=== PATIENT | female | born 2000 | race Hispanic/Latino ===

== ENCOUNTER 2020-10-17 08:20 | Outpatient (CLI) | payer OTHER, SELFPAY ==
[~2020-10-17] VITALS: Ht 160 cm; Wt 77.4 kg
[2020-10-17] MEDS ORDERED: PRENTAB9 PO (08:33)
[2020-10-17 08:38] VITALS: BP 127/75
--- NOTE | 2020-10-17 10:26 | IPNPDOC ---
Obstetrical Progress Note Date of Service Oct 17, 2020 Subjective Pt presents with c/o cramping Objective Vital Signs Date Time Temp Pulse Resp B/P (MAP) Pulse Ox O2 Delivery O2 Flow Rate FiO2 10/17/20 08:38 97.9 72 18 127/75 (92) Assessment Heart Rate (FHR): 130 Variability: Moderate Accelerations: Positive Decelerations: None Heart Rate Tracing: Category I Tocometer Contractions: Yes Frequency: irregular Sterile Vaginal Examination Dilation: 1cm Effacement (%): 50% Station: -3 Cervical Consistency: Medium Cervical Position: Posterior Postion/Presentation: Cephalic presentation Assessment and Plan Age: 20 : 2 Term: 1 Pre-term: 0 Abortions: 0 Livin EGA at Admission: 39 Status: Reassuring Group B Streptococcus: Negative Anticipate: Vaginal Delivery Additional Comments RNST with irregular contractions Cephalic presentation by Antolin SAMANTHA 14.3 IOL for A1GDM scheduled for [id number] @40+0 Discharged to home with labor precautions, expressed understanding of reasons to return for care, IOL scheduled, pt to keep scheduled clinic appointment and COVID testing as ordered CHRISTIANA CHAMORRO CNM Oct 17, 2020 10:26
[2020-10-18] MEDS ORDERED: VIST25CA PO (18:25)
[2020-10-18] MEDS ORDERED: REGL10TA6 PO (18:25)
== END 2020-10-17 10:31 | disposition home or self-care (01) ==
LOC: M LDO 08:20
PROVIDERS: ATTEND Registered Nurse
DX: O26.893 Other specified pregnancy related conditions, third trimester (principal); R10.9 Unspecified abdominal pain; Z3A.40 40 weeks gestation of pregnancy
CPT/HCPCS: 59025; G0378; G0463

== ENCOUNTER 2020-10-18 08:02 | Outpatient (CLI) | payer OTHER ==
[~2020-10-18] VITALS: Ht 160 cm; Wt 77.6 kg
[~2020-10-18 08:02] MED LIST: PRENTAB9 PO
[2020-10-18 08:16] VITALS: BP 120/71
[2020-10-18 10:13] VITALS: BP 119/73
--- NOTE | 2020-10-18 12:19 | IPNPDOC ---
Obstetrical Progress Note Date of Service Oct 18, 2020 Subjective 20yo @39+1, complicated by A1GDM presents to triage for c/o cramping. States cramping, spotting, and difficulty sleeping. Denies bleeding, LOF, states reassuring movement. Objective Vital Signs Date Time Temp Pulse Resp B/P (MAP) Pulse Ox O2 Delivery O2 Flow Rate FiO2 10/18/20 10:13 67 16 119/73 (88) 10/18/20 08:16 98.3 Assessment Heart Rate (FHR): 135 Variability: Moderate Accelerations: Positive Decelerations: None Tocometer Contractions: Yes Frequency: irregular, every 3-7 min. Duration: greater than 60 seconds Strength: palpated as mild, resting tone palp/soft Sterile Vaginal Examination Dilation: 3 cm Effacement (%): 70% Station: -3 Cervical Consistency: Medium Cervical Position: Posterior Postion/Presentation: Cephalic presentation Assessment and Plan Age: 20 : 2 Term: 1 Pre-term: 0 Abortions: 0 Livin EGA at Admission: 39 (+1) Status: Reassuring Additional Comments Pt advised of options for comfort, need for hydration, nutrition, and rest. Pt expressed a desire for rest and medication at home. Discharged to home with labor precautions, expressed understanding of reasons to return for care, hydration, nutrition, safe use of medications. 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 Spouse provided with quarters slip for 24hrs to to provide care and transportation for the patient. CHRISTIANA CHAMORRO CNM Oct 18, 2020 12:19
[2020-10-18] MEDS ORDERED: VIST25CA PO (18:25)
[2020-10-18] MEDS ORDERED: REGL10TA6 PO (18:25)
== END 2020-10-18 11:40 | disposition home or self-care (01) ==
LOC: M LDO 08:02
PROVIDERS: ATTEND Registered Nurse
DX: O26.853 Spotting complicating pregnancy, third trimester (principal); Z3A.39 39 weeks gestation of pregnancy
CPT/HCPCS: 59025; G0378; G0463

== ENCOUNTER 2020-10-18 17:54 | Inpatient (IN) | payer OTHER ==
[2020-10-18] VITALS (24 sets, daily range): BP systolic 104–156; BP diastolic 58–89
[~2020-10-18] VITALS: Ht 165.1 cm; Wt 77.2 kg
[2020-10-18] MEDS ORDERED: REGL10TA6 PO (18:25)
[2020-10-18] MEDS ORDERED: VIST25CA PO (18:25)
[2020-10-18] MEDS ORDERED: LR 1,000 ML IV SCH (19:11)
[2020-10-18 19:28] LABS: HEMATOCRIT 39.7 % (36.0-47.0); MEAN CORPUSCULAR HEMOGLOBIN 28.6 pg (27.0-33.0); MEAN CORPUSCULAR HGB CONC 32.7 g/dl (32.0-36.5); MEAN CORPUSCULAR VOLUME 87.3 fl (80.0-96.0); PLATELET COUNT, AUTOMATED 278 10^3/uL (150-450); RED BLOOD COUNT 4.55 10^6/uL (4.00-5.40); WHITE BLOOD COUNT 15.3 10^3/uL (4.0-10.0)
--- NOTE | 2020-10-18 19:30 | HPEPDOC ---
Obstetrical History & Physical General Date of Admission Oct 18, 2020 at 19:18 History of Present Illness 20 yo at 39+2 weeks gestation by LMP of [id number] presents to L&D with regular, painful contractions that have been worsening throughout the day. She denies vaginal bleeding or leakage of fluid. She endorses movement. Chief Complaint: Contractions, term Information Provided By: Patient Age: 20 : 2 Term: 1 Pre-term: 0 Abortions: 0 Livin Care Care: Good Care Dating Final EDC: Oct 23, 2020 Final EDC for Daily Update: Oct 23, 2020 Final EDC by: LMP LMP: Jan 17, 2020 Antepartum Course Diagnos(e)s Gestational diabetes --> diet controlled RH negative --> has received rhogam appropriately Past Medical History Past Obstetrical History : Past Obstetrical History: Multigravida (G1 - in 2018 at 39 weeks after IOL for GDM, pelvis proven to 6lbs 5oz, G2 - current ) PAGINATOR History: No pertinent history Past Medical History Medical History Denies Surgical History: Denies/None Family History Significant Family History: No pertinent family hx Social History Marital Status: Family situation: Spouse/partner home Psychosocial History: No pertinent psych hx * Smoker: non-smoker Alcohol: Denies Drugs: denies Imunizations Tdap status: current Influenza Status: needs Allergies Coded Allergies: No Known Allergies (Unverified , 10/17/20) Medications Scheduled Metoclopramide HCl (Reglan) 10 Mg Tablet, 1 TAB PO QID before food and bedtime No.137/Iron/Folic Acd ( Vitamin Tablet) 1 Each Tablet, 1 TAB PO DAILY Scheduled PRN Hydroxyzine Pamoate (Vistaril) 25 Mg Capsule, 25 MG PO Q4HP PRN for SLEEP Physical Examination Physical Examination GENERAL: Alert and oriented times three. Painfully kevin and tearful. ABDOMEN: Gravid and non-tender to touch. FETUS: Is vertex (VTX) by sterile vaginal examination (SVE) EXTREMITIES: No edema. Vital Signs/I&O Vital Signs Date Time Temp Pulse Resp B/P (MAP) Pulse Ox O2 Delivery O2 Flow Rate FiO2 10/18/20 18:10 98.2 98 16 128/85 (99) Laboratory Data Urine Culture: No Growth, Escherichia (E.) Coli (s/p treatment) Pertinent Laboratoy Data Blood Type: O- RBC Antibody Screen: Negative HIV: Negative Hepatitis B: Negative Hepatitis C: Unknown Rapid Plasma Reagin: Nonreactive Rubella: Immune Varicella: Immune Chlamydia/Gonorrhea: Negative Group B Streptococcus: Negative Quad Screen Test: Unknown Cystic Fibrosis: Negative Glucose Tolerance Test: 147 Anatomy Ultrasound Ultrasound Date: Jun 06, 2020 Placenta Location: Anterior Normal Anatomy: Yes Placenta Previa: No Vaginal Examination Dilation: 5 cm Effacement: 90% Station: -1 Cervical Consistency: Soft Cervical Position: Middle Presentation: Cephalic presentation Position: Vertex (occiput) Assessment Heart Rate (FHR): 140 Variability: Moderate Accelerations: Positive Decelerations: None Tocometer Contractions: Yes Frequency: regular Strength: palpated as strong Assessment/Plan Assessment 20 yo at 39+2 weeks gestation presents to L&D in active labor. Plan Admit to L&D for expectant management of labor. Will augment as clinically indicated. Apply IV fluids. Clear liquid diet. GBS negative. Patient may have epidural if desired. Anticipate . DO KALINA Calderon CHRISTOPHER J. DO Oct 18, 2020 19:30
[2020-10-18] MEDS ORDERED: FENTANYL 2MCG/ML ROPIVACAINE 0.2% IN 0.9% NACL 100ML IVBAG As Ordered ONE (19:45)
[2020-10-18] MEDS ORDERED: ePHEDrine SULFATE 25 MG/5 ML(5MG/ML) SYRINGE IV PRN (20:30)
[2020-10-18] MEDS ORDERED: ONDANSETRON 4MG/2ML VIAL IV PRN (20:30)
[2020-10-18] MEDS ORDERED: EPIDURAL/PCA KEYS XX PRN (20:30)
[2020-10-18] MEDS ORDERED: FENTANYL/ROPIVACAINE/NACL BAG 100 ML EPIDURAL SCH (20:30)
[2020-10-18] MEDS ORDERED: REFRIGERATOR IV KEYS XX PRN (20:30)
[2020-10-18] MEDS ORDERED: NALOXONE INJ 0.4MG/1ML VIAL (J2310 PER 1MG) IV PRN (20:30)
[2020-10-18] MEDS ORDERED: EPIDURAL COMMENT XX SCH (20:30)
[2020-10-18] MEDS ORDERED: LACTATED RINGER'S 1000 ML IV PRN (20:30)
[2020-10-18] MEDS ORDERED: diphenhydrAMINE 50MG/ML VIAL (J1200) IV PRN (20:30)
[2020-10-18] MEDS ORDERED: OXYTOCIN 30 UNITS IN 0.9% NaCl 500ML IV BAG (J2590) As Ordered ONE (22:23)
[2020-10-18] MEDS ORDERED: OXYTOCIN DRIP 30 UNITS in IV 1 EA IV SCH (23:28)
[2020-10-18] MEDS ORDERED: PROMETHAZINE 25 MG TAB PO PRN (23:30)
[2020-10-18] MEDS ORDERED: ACETAMINOPHEN TAB 650MG DOSE (2X325MG) PO PRN (23:30)
[2020-10-18] MEDS ORDERED: RHOGAM 300 MCG (1500 IU) INJ (J2790) IM SCH (23:30)
[2020-10-18] MEDS ORDERED: BENZOCAINE 20% HEMORRHOIDAL OINTMENT 28GM TUBE TOP PRN (23:30)
[2020-10-18] MEDS ORDERED: IBUPROFEN 600MG TAB PO PRN (23:30)
[2020-10-18] MEDS ORDERED: MEASLES,MUMPS,RUBELLA VACCINE INJ (MMR-II) (90707) SC SCH (23:30)
[2020-10-18] MEDS ORDERED: DOCUSATE SODIUM 100MG CAPSULE PO PRN (23:30)
--- NOTE | 2020-10-18 23:36 | DNPDOC ---
[facility] Delivery Note Delivery Note DATE OF DELIVERY: 18Oct2020 at ~2310 PREDELIVERY DIAGNOSIS: 39+2 weeks gestation and active labor POST DELIVERY DIAGNOSIS: Delivered. PROCEDURE: Spontaneous vaginal delivery MEDICAL OFFICE PROFESSIONAL INSTRUCTOR: Dr. Ayala ANESTHESIA: Neuraxial (Epidural). ESTIMATED BLOOD LOSS: 200 mL. FINDINGS: 7 pound 12 ounce male , Score 9/9 DELIVERY SUMMARY: Sugar progressed quickly in labor after her epidural. Her membranes ruptured spontaneously (clear fluid) and she felt a strong urge to push. The bed was broken down and she was prepped for delivery. With excellent effort over about 1 hour of pushing, her baby delivered. Presentation was CRISTAL with restitution to LOT. The right anterior shoulder delivered with gentle guidance followed easily by the remainder of the body. The was dried and stimulated on the field and a bulb suction was used. The infant was placed on the maternal abdomen and cried vigorously. The three vessel umbilical cord was then clamped and cut by the FOB after appropriate time delay and under my direction. Third stage was completed with gentle traction on on the cord and it was productive of an intact placenta. The uterus was firmed with massage and pitocin was administered IV bolus. Inspection of the cervix, vagina, labia, and perineum revealed a midline 2nd degree perineal laceration. This laceration was repaired with 3-0 vicryl suture in the usual fashion. There was excellent cosmesis and hemostasis after the repair. The fundus was palpated again and was firm. Sponge, instrument, and needle counts were correct X2. Mother and infant stable when I left the room. DO KALINA Calderon CHRISTOPHER J. DO Oct 18, 2020 23:36
[2020-10-19 00:57] VITALS: BP 144/79
[2020-10-19] MEDS: ACETAMINOPHEN 500 MG TAB PO PRN ×2 (04:31→17:15)
[2020-10-19 06:00] VITALS: BP 106/56
--- NOTE | 2020-10-19 06:21 | IPNPDOC ---
Progress Note Date of Service: Oct 19, 2020 Progress Note Sugar is a 20 yo G2 now P2 who underwent an uncomplicated yesterday evening around ~2300 after being admitted for active labor. No acute acute events overnight. She reports feeling well this morning, just tired. Lochia is minimal. She is . She is ambulating, voiding, tolerating a regular diet. She denies any significant pain. Vitals - VSS, afebrile, normotensive, non tachycardic General - Laying in bed, NAD, pleasant and conversant Abdomen - Fundus firm at U-2. No fundal tenderness Extremities - No edema Sugar is doing well and is thus far making an appropriate recovery. Rhogam due today. Will continue routine care. Anticipate discharge home tomorrow. All patient questions answered. Raymundo Ayala DO VS, I&O, 24H, Fishbone Vital Signs/I&O Vital Signs Date Time Temp Pulse Resp B/P (MAP) Pulse Ox O2 Delivery O2 Flow Rate FiO2 10/19/20 06:00 98.3 75 16 106/56 (73) 98 Room Air I&O- Last 24 Hours up to 6 AM 10/19/20 06:00 Intake Total 2000 ml Output Total 450 ml Balance 1550 ml Laboratory Data 24H LABS Laboratory Tests 2 10/18/20 19:18: Nucleated Red Blood Cells % (auto) 0.0, Syphilis Serology NONREACTIVE, Hepatitis B Surface Antigen NEGATIVEL 10/18/20 21:56: Serology Scanned Report Hepatitis B Testing CBC/BMP Laboratory Tests 10/18/20 19:18 RAYMUNDO AYALA DO Oct 19, 2020 06:21
[2020-10-19] MEDS: IBUPROFEN 800 MG TAB PO PRN (09:23)
[2020-10-19] MEDS: PRENATAL VITAMINS CHEWABLE TABLET PO SCH (09:23)
--- NOTE | 2020-10-19 17:40 | IPN ---
PROGRESS NOTE DATE: 10/19/2020 This patient's requested circumcision of their male infant. After discussing risks, benefits of circumcision, the medical and nonmedical indications, the penile block and aftercare, expressed understanding of penile block, aftercare and bleeding, signed a consent form. All questions were answered; 20 minute discussion. We wait for clearance by the card hanger.
[2020-10-19 18:00] VITALS: BP 117/61
[2020-10-20] MEDS: IBUPROFEN 800 MG TAB PO PRN (00:13)
[2020-10-20] MEDS: ACETAMINOPHEN 500 MG TAB PO PRN (02:05)
[2020-10-20 05:35] VITALS: BP 96/51
[2020-10-20] MEDS ORDERED: DOK1CAP7 PO (06:49)
[2020-10-20] MEDS ORDERED: IBUP-1022 PO (06:49)
[2020-10-20] MEDS: PRENATAL VITAMINS CHEWABLE TABLET PO SCH (07:46)
--- NOTE | 2020-10-20 07:46 | DSES ---
DISCHARGE SUMMARY DATE OF ADMISSION: 10/18/2020 DATE OF DISCHARGE: 10/20/2020 BRIEF HISTORY: This lady is a 1, now para 2, admitted with contractions at 39 and 2 weeks of gestation. Had an epidural in place. Spontaneous vaginal delivery, male infant, 7 pounds, 12 ounces. scores of 9 and 9 at one and five minutes respectively. She is an AGDM1 on diet. Second degree tear was repaired in the usual fashion. On her second day we discussed phlebitis, cystitis, mastitis, endometritis, cellulitis, diet, exercise, pain management, perineal care. On discharge, her hemoglobin was 13.0, hematocrit 39.7 and platelets were 278. PHYSICAL EXAMINATION: VITAL SIGNS: Blood pressure 96/51, respirations 16, pulse 72, temperature 97.1. The rest of the examination is unremarkable. Normocephalic, atraumatic. Neck full range of motion, Pupils are equal and reactive to light and accommodation. Distal pulses symmetric. No evidence of deep venous thrombosis, pulmonary embolism or superficial phlebitis. CHEST: Clear bilaterally to bases. No wheezes or rhonchi. No costovertebral angle (CVA) tenderness. ABDOMEN: Soft. Uterus 2 below. Lochia is moderate. Four quadrant bowel sounds are noted. Perineum is healing. No rashes, lesions or pruritus. No arthralgia or myalgia. No complaint of joint pain. No complaint of cough, wheeze, shortness of breath or dyspnea on exertion. No vomiting, diarrhea or constipation. No urgency or frequency. PLAN OF DISCHARGE: She is to bean picker her medications at [place]. She has a six week checkup at [facility]. She will be counseled as to where to take baby for first post infant checkup. All questions are answered, 20 minute discussion. Patient was discharged improved.
[2020-10-20] MEDS ORDERED: INFLUENZA QUADRIVALENT PF VACCINE 0.5ML SYRINGE IM ONE (09:00)
== END 2020-10-20 11:45 | disposition home or self-care (01) | DRG 807 ==
LOC: M LDO 17:54 → M LDI 19:18 → M OBS 10-19 00:57
PROVIDERS: ADMIT Obstetrics & Gynecology; ATTEND Obstetrics & Gynecology
PROC: 10E0XZZ Delivery of Products of Conception, External Approach (ICD-10-PCS; principal; 2020-10-18)
PROC: 0KQM0ZZ Repair Perineum Muscle, Open Approach (ICD-10-PCS; 2020-10-18)
DX: O24.420 Gestational diabetes mellitus in childbirth, diet controlled (principal); Z37.0 Single live birth; Z3A.39 39 weeks gestation of pregnancy; O70.1 Second degree perineal laceration during delivery

== ENCOUNTER → 2021-10-25 | Outpatient (CLI) | payer OTHER ==
[~2021-10-25] MED LIST changes: +DOK1CAP4 PO; +IBUP-1022 PO; +REGL10TA6 PO; +VIST25CA PO
[2021-10-25 16:27] LABS: BASO % 0.4 % (0.0-1.0); EOS % 0.4 % (0.0-3.0); HEMATOCRIT 33.8 % (36.0-47.0); HEMOGLOBIN 11.6 g/dl (12.0-15.5); LYMPH # 1.3 10^3/uL (1.5-5.0); LYMPH % 18.3 % (24.0-44.0); MEAN CORPUSCULAR HEMOGLOBIN 30.9 pg (27.0-33.0); MEAN CORPUSCULAR HGB CONC 34.3 g/dl (32.0-36.5); MEAN CORPUSCULAR VOLUME 89.9 fl (80.0-96.0); MONO # 0.5 10^3/uL (0.0-0.8); MONO % 6.7 % (2.0-8.0); NEUTROPHILS # 5.4 10^3/uL (1.5-8.5); NEUTROPHILS % 73.4 % (36.0-66.0); PLATELET COUNT, AUTOMATED 229 10^3/uL (150-450); RED BLOOD COUNT 3.76 10^6/uL (4.00-5.40); WHITE BLOOD COUNT 7.3 10^3/uL (4.0-10.0)
[2021-10-25 16:37] LABS: APPEARANCE, URINE HAZY (CLEAR); BACTERIA, URINE AUTO 1+ (NEGATIVE); BILIRUBIN, URINE AUTO NEGATIVE (NEGATIVE); BLOOD, URINE BLOOD NEGATIVE (NEGATIVE); COLOR, URINE YELLOW (YELLOW); GLUCOSE, URINE (UA) AUTO NEGATIVE (NEGATIVE); KETONE, URINE AUTO TRACE mg/dL (NEGATIVE); LEUKOCYTE ESTERASE, URINE AUTO 1+ (NEGATIVE); MUCUS, URINE SMALL (NEGATIVE); NITRITE, URINE AUTO POSITIVE (NEGATIVE); PROTEIN, URINE AUTO NEGATIVE (NEGATIVE); RBC, URINE AUTO 0 /HPF (0-3); SPECIFIC GRAVITY URINE AUTO 1.018 (1.002-1.035); SQUAMOUS EPITHELIAL CELL UR AU 1 /HPF (0-6); WBC, URINE AUTO 4 /HPF (0-3)
[2021-10-25 16:55] LABS: ALT/SGPT 12 U/L (12-78); BILIRUBIN,TOTAL 0.4 MG/DL (0.2-1.0); BLOOD UREA NITROGEN 9 MG/DL (7-18); CALCIUM LEVEL 8.6 MG/DL (8.5-10.1); CARBON DIOXIDE LEVEL 24 MEQ/L (21-32); CHLORIDE LEVEL 109 MEQ/L (98-107); CREATININE FOR GFR 0.44 MG/DL (0.55-1.30); GLOMERULAR FILTRATION RATE > 60.0 (>60); GLUCOSE, FASTING 72 MG/DL (70-100); POTASSIUM SERUM 3.9 MEQ/L (3.5-5.1); SODIUM LEVEL 140 MEQ/L (136-145); TOTAL PROTEIN 6.4 GM/DL (6.4-8.2)
[2021-10-25 17:15] LABS: HEPATITIS B SURFACE ANTIGEN NEGATIVE (NEGATIVE)
[2021-10-25 17:43] LABS: HIV 1&2 SCREEN CENTAUR NEGATIVE (NEGATIVE)
== END ==
LOC: M LAB 14:39
PROVIDERS: ATTEND Obstetrics & Gynecology
DX: Z34.92 Encounter for supervision of normal pregnancy, unspecified, second trimester (principal)

== ENCOUNTER 2022-01-14 11:04 | Outpatient (CLI) | payer OTHER ==
[~2022-01-14] VITALS: Ht 160 cm; Wt 65.6 kg
[2022-01-14] MEDS ORDERED: STUACAP PO (11:20)
[2022-01-14 11:25] VITALS: BP 120/61
[2022-01-14 12:07] LABS: APPEARANCE, URINE CLEAR (CLEAR); BACTERIA, URINE AUTO 2+ (NEGATIVE); BILIRUBIN, URINE AUTO NEGATIVE (NEGATIVE); BLOOD, URINE BLOOD NEGATIVE (NEGATIVE); COLOR, URINE YELLOW (YELLOW); GLUCOSE, URINE (UA) AUTO NEGATIVE (NEGATIVE); KETONE, URINE AUTO NEGATIVE (NEGATIVE); LEUKOCYTE ESTERASE, URINE AUTO 1+ (NEGATIVE); NITRITE, URINE AUTO POSITIVE (NEGATIVE); PROTEIN, URINE AUTO NEGATIVE (NEGATIVE); RBC, URINE AUTO 1 /HPF (0-3); SPECIFIC GRAVITY URINE AUTO 1.009 (1.002-1.035); SQUAMOUS EPITHELIAL CELL UR AU 1 /HPF (0-6); UROBILINOGEN, URINE AUTO 0.2 mg/dL (0.0-2.0); WBC, URINE AUTO 12 /HPF (0-3)
== END 2022-01-14 12:30 ==
LOC: M LDO 11:04
PROVIDERS: ATTEND Obstetrics & Gynecology
DX: O26.893 Other specified pregnancy related conditions, third trimester (principal); N89.8 Other specified noninflammatory disorders of vagina; Z3A.36 36 weeks gestation of pregnancy; Z87.59 Personal history of other complications of pregnancy, childbirth and the puerperium

== ENCOUNTER 2022-02-01 06:00 | Inpatient (IN) | payer OTHER ==
[2022-02-01] VITALS (31 sets, daily range): BP systolic 80–177; BP diastolic 51–98
[~2022-02-01] VITALS: Ht 160 cm; Wt 66.9 kg
[~2022-02-01 06:00] MED LIST changes: +STUACAP PO
[2022-02-01] MEDS ORDERED: HOME MED LIST COMPLETE! XX SCH (06:35)
[2022-02-01] MEDS ORDERED: LACTATED RINGER'S 1000 ML IV STA (06:55)
[2022-02-01] MEDS ORDERED: LIDOCAINE 1% MDV 20ML VIAL INFIL PRN (06:55)
[2022-02-01] MEDS ORDERED: OXYTOCIN INJ 10 UNITS/ML VIAL (J2590) IV PRN (06:55)
[2022-02-01] MEDS ORDERED: OXYTOCIN DRIP 30 UNITS in IV 1 EA IV SCH ×2 (06:55→10:55)
[2022-02-01] MEDS ORDERED: TRANEXAMIC ACID INJection 1,000 MG in NS 100 ML IV PRN (06:55)
[2022-02-01] MEDS ORDERED: LR 1,000 ML IV SCH (06:55)
[2022-02-01] MEDS ORDERED: OXYTOCIN INJ 10 UNITS/ML VIAL (J2590) IM PRN (06:55)
[2022-02-01] MEDS ORDERED: CARBOPROST TROMETHAMINE 250 MCG/ML AMP IM PRN (06:55)
[2022-02-01] MEDS ORDERED: METHYLERGONOVINE MALEATE 0.2 MG/ML VIAL (J2210) IM PRN (06:55)
[2022-02-01] MEDS ORDERED: OXYTOCIN DRIP 30 UNITS in IV 1 EA IV PRN ×4 (06:55)
[2022-02-01 06:57] LABS: MEAN CORPUSCULAR HEMOGLOBIN 27.8 pg (27.0-33.0); MEAN CORPUSCULAR HGB CONC 33.3 g/dl (32.0-36.5); MEAN CORPUSCULAR VOLUME 83.5 fl (80.0-96.0); PLATELET COUNT, AUTOMATED 299 10^3/uL (150-450); RED BLOOD COUNT 4.31 10^6/uL (4.00-5.40); WHITE BLOOD COUNT 9.2 10^3/uL (4.0-10.0)
[2022-02-01] MEDS ORDERED: FENTANYL 2MCG/ML ROPIVACAINE 0.2% IN 0.9% NACL 100ML IVBAG As Ordered ONE (07:20)
[2022-02-01] MEDS: LR 1,000 ML IV SCH ×2 (07:51→08:40)
[2022-02-01] MEDS ORDERED: ePHEDrine SULFATE 25 MG/5 ML(5MG/ML) SYRINGE As Ordered ONE (08:18)
[2022-02-01] MEDS ORDERED: ePHEDrine SULFATE 25 MG/5 ML(5MG/ML) SYRINGE IV PRN (08:30)
[2022-02-01] MEDS ORDERED: diphenhydrAMINE 50MG/ML VIAL (J1200) IV PRN (08:30)
[2022-02-01] MEDS ORDERED: REFRIGERATOR IV KEYS XX PRN (08:30)
[2022-02-01] MEDS ORDERED: EPIDURAL/PCA KEYS XX PRN (08:30)
[2022-02-01] MEDS ORDERED: EPIDURAL COMMENT XX SCH (08:30)
[2022-02-01] MEDS ORDERED: FENTANYL/ROPIVACAINE/NACL BAG 100 ML EPIDURAL SCH (08:30)
[2022-02-01] MEDS ORDERED: NALOXONE INJ 0.4MG/1ML VIAL (J2310 PER 1MG) IV PRN (08:30)
[2022-02-01] MEDS ORDERED: ONDANSETRON 4MG/2ML VIAL IV PRN (08:30)
[2022-02-01] MEDS ORDERED: LACTATED RINGER'S 1000 ML IV PRN (08:30)
[2022-02-01] MEDS: PRENATAL VITAMINS CHEWABLE TABLET PO SCH (09:00)
[2022-02-01] MEDS ORDERED: ACETAMINOPHEN 500 MG TAB PO PRN (10:55)
[2022-02-01] MEDS ORDERED: MEASLES,MUMPS,RUBELLA VACCINE INJ (MMR-II) (90707) SC SCH (10:55)
[2022-02-01] MEDS ORDERED: DIBUCAINE 1% OINTMENT 30GM TOP PRN (10:55)
[2022-02-01] MEDS ORDERED: RHOGAM 300 MCG (1500 IU) INJ (J2790) IM SCH (10:55)
[2022-02-01] MEDS ORDERED: DOCUSATE SODIUM 100MG CAPSULE PO PRN (10:55)
[2022-02-01] MEDS ORDERED: METHYLERGONOVINE MALEATE 0.2 MG TAB PO PRN (10:55)
[2022-02-01] MEDS ORDERED: IBUPROFEN 800 MG TAB PO PRN (10:55)
[2022-02-01] MEDS ORDERED: ACETAMINOPHEN TAB 650MG DOSE (2X325MG) PO PRN (10:55)
[2022-02-01] MEDS: IBUPROFEN 600MG TAB PO PRN ×2 (15:37→22:36)
[2022-02-02] MEDS: IBUPROFEN 600MG TAB PO PRN (05:27)
[2022-02-02 05:29] VITALS: BP 102/53
[2022-02-02] MEDS ORDERED: IBUP80TA PO (06:49)
[2022-02-02] MEDS ORDERED: COLA100C5 PO (06:49)
[2022-02-02] MEDS ORDERED: ACET1TAB55 PO (06:49)
[2022-02-02] MEDS ORDERED: BOOSTRIX/ADACEL VACCINE (DIPHTH/PERTUSS/ACELL/TETANUS) 0.5ML SYR IM ONE (09:00)
[2022-02-02] MEDS ORDERED: INFLUENZA QUADRIVALENT PF VACCINE 0.5ML SYRINGE IM ONE (09:00)
[2022-02-02] MEDS: PRENATAL VITAMINS CHEWABLE TABLET PO SCH (09:54)
== END 2022-02-02 16:15 | disposition home or self-care (01) | DRG 807 ==
LOC: M LDO 06:00 → M LDI 06:36 → M OBS 13:04
PROVIDERS: ADMIT Obstetrics & Gynecology; ATTEND Obstetrics & Gynecology
PROC: 10E0XZZ Delivery of Products of Conception, External Approach (ICD-10-PCS; principal; 2022-02-01)
PROC: 0HQ9XZZ Repair Perineum Skin, External Approach (ICD-10-PCS; 2022-02-01)
DX: O36.0930 Maternal care for other rhesus isoimmunization, third trimester, not applicable or unspecified (principal); Z37.0 Single live birth; Z3A.38 38 weeks gestation of pregnancy; O70.0 First degree perineal laceration during delivery